=== PATIENT | female | born 1935 | race Caucasian/White ===

== ENCOUNTER 2021-10-26 14:39 | Inpatient (IN) | payer BC, MEDICARE ==
[2021-10-26 15:01] LABS: Basophils % (A) 0 %; Eosinophils # (A) 0.1 k/uL (0-0.7); Eosinophils % (A) 1 %; HCT 46.5 % (34.0-46.0); HGB 15.5 gm/dL (11.4-16.0); Lymphocytes % (A) 15 %; MCH 32.2 pg (25.0-35.0); MCHC 33.4 g/dL (31.0-37.0); MCV 96.4 fL (80.0-100.0); Mean Platelet Volume 7.4; Monocytes # (A) 0.8 k/uL (0-1.0); Monocytes % (A) 6 %; Neutrophils # (A) 10.5 k/uL (1.3-7.7); Neutrophils % (A) 78 %; Platelet Count 255 k/uL (150-450); RBC 4.82 m/uL (3.80-5.40); RDW 13.3 % (11.5-15.5); WBC 13.5 k/uL (3.8-10.6)
[2021-10-26 15:10] LABS: ALT 20 U/L (4-34); AST 33 U/L (14-36); African American GFR (CKD) >90 (>60 ml/min/1.73 sqM); Albumin 3.6 g/dL (3.5-5.0); Alkaline Phosphatase 92 U/L (38-126); Anion Gap 12 mmol/L; Blood Urea Nitrogen 16 mg/dL (7-17); Calcium 8.9 mg/dL (8.4-10.2); Carbon Dioxide 21 mmol/L (22-30); Chloride 100 mmol/L (98-107); Glucose 114 mg/dL (74-99); Lipase 40 U/L (23-300); Magnesium 1.8 mg/dL (1.6-2.3); Non-African American GFR(CKD) 85 (>60 ml/min/1.73 sqM); Potassium 3.6 mmol/L (3.5-5.1); Sodium 133 mmol/L (137-145); Total Bilirubin 0.9 mg/dL (0.2-1.3); Total Protein 6.1 g/dL (6.3-8.2)
--- NOTE | 2021-10-26 15:14 | ED ---
General Adult HPI - General Chief complaint: Chest Pain Stated complaint: Chest Pain Time Seen by Provider: 10/26/21 14:45 Source: patient, EMS, RN notes reviewed, old records reviewed Mode of arrival: EMS Limitations: no limitations - History of Present Illness Initial comments: 85-year-old female presented for evaluation of chest pain and tightness. Her symptoms began prior to arrival today. They are resolved currently. She was given aspirin by paramedics during transport. She has no previous history of coronary artery disease. She did not report dyspnea but was mildly hypoxic. She had no preceding symptoms, no cough or dyspnea, no fever. No abdominal pain. She does report bilateral lower extremity swelling over the past several days. - Related Data Home Medications Medication Instructions Recorded Confirmed ALPRAZolam [Xanax] 0.5 mg PO BID PRN 06/18/15 07/10/15 Aspirin [Adult Low Dose Aspirin EC] 81 mg PO DAILY 06/18/15 07/10/15 Biotin 10,000 mcg PO DAILY 06/18/15 07/10/15 Calcium Carbonate/Vitamin D3 1 each PO BID 06/18/15 07/10/15 [Calcium 600-Vit D3 400 Tablet] Cetirizine HCl [Zyrtec] 5 mg PO DAILY 06/18/15 07/10/15 Cholecalciferol [Vitamin D3 (25 2,000 unit PO Q48H 06/18/15 07/10/15 Mcg = 1000 Iu)] Cranberry Fruit Extract [Cranberry] 500 mg PO DAILY 06/18/15 07/10/15 Fish Oil/Dha/Epa [Fish Oil 1,200 2 each PO DAILY 06/18/15 07/10/15 mg Fish Oil] Multivitamins, Thera [Multivitamin 1 tab PO DAILY 06/18/15 07/10/15 (formulary)] Ubidecarenone [Co Q-10] 100 mg PO BID 07/07/15 07/10/15 Previous Rx's Medication Instructions Recorded Aspirin 325 mg PO DAILY #90 tab 07/11/15 Atorvastatin [Lipitor] 80 mg PO HS #90 tab 07/11/15 Clopidogrel [Plavix] 75 mg PO DAILY #90 tab 07/11/15 Allergies Allergy/AdvReac Type Severity Reaction Status Date / Time Sulfa (Sulfonamide Allergy Rash/Hives Verified 10/26/21 14:49 Antibiotics) Review of Systems ROS Statement: Those systems with pertinent positive or pertinent negative responses have been documented in the HPI. ROS Other: All systems not noted in ROS Statement are negative. Past Medical History Past Medical History: Vascular Disorder Additional Past Medical History / Comment(s): frequent UTI's, blood in urine History of Any Multi-Drug Resistant Organisms: None Reported Past Surgical History: Hysterectomy, Tonsillectomy Additional Past Surgical History / Comment(s): R hand in 2013, aortogram Past Anesthesia/Blood Transfusion Reactions: No Reported Reaction Past Psychological History: Anxiety Smoking Status: Former smoker Past Alcohol Use History: Occasional Past Drug Use History: None Reported - Past Family History Mother Family Medical History: No Reported History Additional Family Medical History / Comment(s): lived to be 95, took lasix and digoxin Father Family Medical History: Myocardial Infarction ([place]) Additional Family Medical History / Comment(s): at age 75-mi General Exam Limitations: no limitations General appearance: alert, in no apparent distress Head exam: Present: atraumatic, normocephalic Eye exam: Present: normal appearance, PERRL ENT exam: Present: normal exam Neck exam: Present: normal inspection. Absent: tenderness, meningismus Respiratory exam: Present: rales. Absent: respiratory distress Cardiovascular Exam: Present: regular rate, normal rhythm GI/Abdominal exam: Present: soft. Absent: distended, tenderness, guarding Extremities exam: Present: pedal edema. Absent: calf tenderness Neurological exam: Present: alert, oriented X3, CN II-XII intact. Absent: motor sensory deficit Psychiatric exam: Present: normal affect, normal mood Skin exam: Present: warm, dry, intact. Absent: cyanosis, diaphoretic Course Vital Signs 10/26/21 10/26/21 10/26/21 14:41 14:50 15:25 Temperature 98.1 F Pulse Rate 98 98 Pulse Rate [ 98 Videotape Operator ] Respiratory 18 18 Rate Blood Pressure 147/81 154/93 O2 Sat by Pulse 90 L 96 Oximetry EKG Findings - EKG Comments: EKG Findings:: EKG: Sinus rhythm PVC rate of 94 low voltage, VT interval 167, QRS duration 90, QTC [address] segment elevation. Medical Decision Making - Medical Decision Making 85-year-old female presenting for chest pain and dyspnea. Patient has no prior history of CAD. EKG is sinus without ST segment elevation. Patient has chest x-ray which is negative for focal pneumonia or pneumothorax. Patient has a mild leukocytosis at 13. She has a normal CMP, negative d-dimer, negative initial troponin. She will be kept in observation for serial cardiac enzymes, telemetry, echo, cardiology consultation. Case discussed with Dr. Fernandez - Lab Data Result diagrams: 10/26/21 14:54 10/26/21 14:54 Lab Results 10/26/21 10/26/21 10/26/21 Range/Units 14:54 14:54 14:54 WBC 13.5 H (3.8-10.6) k/uL RBC 4.82 (3.80-5.40) m/uL Hgb 15.5 (11.4-16.0) gm/dL Hct 46.5 H (34.0-46.0) % MCV 96.4 (80.0-100.0) fL MCH 32.2 (25.0-35.0) pg MCHC 33.4 (31.0-37.0) g/dL RDW 13.3 (11.5-15.5) % Plt Count 255 (150-450) k/uL MPV 7.4 Neutrophils % 78 % Lymphocytes % 15 % Monocytes % 6 % Eosinophils % 1 % Basophils % 0 % Neutrophils # 10.5 H (1.3-7.7) k/uL Lymphocytes # 2.0 (1.0-4.8) k/uL Monocytes # 0.8 (0-1.0) k/uL Eosinophils # 0.1 (0-0.7) k/uL Basophils # 0.0 (0-0.2) k/uL PT 10.3 (9.0-12.0) sec INR 0.9 (<1.2) APTT 25.9 (22.0-30.0) sec D-Dimer 0.38 (<0.60) mg/L FEU Sodium 133 L (137-145) mmol/L Potassium 3.6 (3.5-5.1) mmol/L Chloride 100 (98-107) mmol/L Carbon Dioxide 21 L (22-30) mmol/L Anion Gap 12 mmol/L BUN 16 (7-17) mg/dL Creatinine 0.59 (0.52-1.04) mg/dL Est GFR (CKD-EPI)AfAm >90 (>60 ml/min/1.73 sqM) Est GFR (CKD-EPI)NonAf 85 (>60 ml/min/1.73 sqM) Glucose 114 H (74-99) mg/dL Calcium 8.9 (8.4-10.2) mg/dL Magnesium 1.8 (1.6-2.3) mg/dL Total Bilirubin 0.9 (0.2-1.3) mg/dL AST 33 (14-36) U/L ALT 20 (4-34) U/L Alkaline Phosphatase 92 (38-126) U/L Troponin I (0.000-0.034) ng/mL NT-Pro-B Natriuret Pep pg/mL Total Protein 6.1 L (6.3-8.2) g/dL Albumin 3.6 (3.5-5.0) g/dL Lipase 40 (23-300) U/L 10/26/21 10/26/21 Range/Units 14:54 14:54 WBC (3.8-10.6) k/uL RBC (3.80-5.40) m/uL Hgb (11.4-16.0) gm/dL Hct (34.0-46.0) % MCV (80.0-100.0) fL MCH (25.0-35.0) pg MCHC (31.0-37.0) g/dL RDW (11.5-15.5) % Plt Count (150-450) k/uL MPV Neutrophils % % Lymphocytes % % Monocytes % % Eosinophils % % Basophils % % Neutrophils # (1.3-7.7) k/uL Lymphocytes # (1.0-4.8) k/uL Monocytes # (0-1.0) k/uL Eosinophils # (0-0.7) k/uL Basophils # (0-0.2) k/uL PT (9.0-12.0) sec INR (<1.2) APTT (22.0-30.0) sec D-Dimer (<0.60) mg/L FEU Sodium (137-145) mmol/L Potassium (3.5-5.1) mmol/L Chloride (98-107) mmol/L Carbon Dioxide (22-30) mmol/L Anion Gap mmol/L BUN (7-17) mg/dL Creatinine (0.52-1.04) mg/dL Est GFR (CKD-EPI)AfAm (>60 ml/min/1.73 sqM) Est GFR (CKD-EPI)NonAf (>60 ml/min/1.73 sqM) Glucose (74-99) mg/dL Calcium (8.4-10.2) mg/dL Magnesium (1.6-2.3) mg/dL Total Bilirubin (0.2-1.3) mg/dL AST (14-36) U/L ALT (4-34) U/L Alkaline Phosphatase (38-126) U/L Troponin I <0.012 (0.000-0.034) ng/mL NT-Pro-B Natriuret Pep 195 pg/mL Total Protein (6.3-8.2) g/dL Albumin (3.5-5.0) g/dL Lipase (23-300) U/L Disposition Clinical Impression: Chest pain Disposition: ADMITTED IP TO THIS [facility] Condition: Stable Instructions (If sedation given, give patient instructions): Chest Pain (ED) Is patient prescribed a controlled substance at d/c from ED?: No Referrals: Kathi Gar MD [Primary Care Provider] - 1-2 days Time of Disposition: 15:52
[2021-10-26 15:15] LABS: INR 0.9 (<1.2); Partial Thromboplastin Time 25.9 sec (22.0-30.0); Prothrombin Time 10.3 sec (9.0-12.0)
--- NOTE | 2021-10-26 15:27 | XR ---
EXAMINATION TYPE: XR chest 2V DATE OF EXAM: 10/26/2021 3:17 PM COMPARISON: Chest radiographs from 01/18/2016 TECHNIQUE: XR chest 2V Frontal and lateral views of the chest. CLINICAL INDICATION:Female, 85 years old with history of Chest Pain; FINDINGS: Lungs/Pleura: Bibasilar atelectasis. There is no evidence of pleural effusion, focal consolidation, o r pneumothorax. Pulmonary vascularity: Unremarkable. Heart/mediastinum: Cardiomediastinal silhouette is unremarkable. The aorta appears tortuous, a findi ng usually associated with either atherosclerosis or systemic hypertension. Musculoskeletal: Degenerative changes of the shoulder joints. IMPRESSION: Bibasilar atelectasis with low lung volumes. No definitive evidence for acute process.
[2021-10-26] MEDS ORDERED: ACETAMINOPHEN TAB 325 MG TAB PO PRN (15:48)
[2021-10-26] MEDS ORDERED: NALOXONE 0.4 MG/ML 1 ML VIAL IV PRN (15:48)
[2021-10-26] MEDS: METOPROLOL TARTRATE 25 MG TAB PO SCH (16:44)
--- NOTE | 2021-10-26 17:36 | P.HPIM ---
History of Present Illness H&P Date: 10/26/21 Chief Complaint: Chest pressure 85-year-old woman with medical history of hypertension, hyperlipidemia, nonsmoker, osteoporosis presented for chest pressure. Patient says that she was in her usual state of health up until today, shortly after completing her work out at the [facility], she experienced a bout of chest pressure that felt squeezing in nature. She has never expenses before. It was not associated with exercise, position, oral intake. She denies fevers, chills, nausea, vomiting, sick, presyncope, palpitations, sweats, cough, dyspnea, abdominal pain, constipation, diarrhea, dysuria, dyschezia, numbness/weakness of extremities. In the emergency room, patient was afebrile, 147/81, heart rate 98, 90% saturation on room air. CBC shows mild leukocytosis at 13.5, otherwise unremarkable. Chemistries show a sodium of 133, CO2 of 21, otherwise unremarkable. LFTs, lipase are unremarkable. Initial troponin was less than 0.012. BNP was 195. Coags, d-dimer are unremarkable. Chest x-ray shows bibasilar atelectasis with low lung volumes and no definite evidence of acute process. 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 All Systems reviewed and pertinent positives and negatives noted in HPI, all other symptoms are negative Gen: in no apparent distress, resting comfortably in bed Eyes: PERRL, no scleral injection or icterus HENT: normocephalic, atraumatic, good hearing acuity, moist mucous membranes Neck: no tracheal deviation, full range of motion Resp: good air exchange, breathing comfortably with no accessory muscle use, no tactile fremitus, clear to auscultation bilaterally CVS: good distal perfusion x 4, ankle pitting edema, regular rate and rhythm, no murmurs, JVD is present GI: soft, NTTP, ND, no hepatosplenomegaly : no suprapubic tenderness, no CVAT, lang catheter not present MSK: no clubbing, no cyanosis, no noted contractures of extremities Skin: no noted rashes, petechiae; temperature of skin is appropriate Neuro: moving all extremities without signs of weakness, CN II-XII intact Psych: cooperative, euthymic mood, insight and judgment intact Labs and imaging reviewed as above Assessment/plan: Chest pain, atypical -Admit to observation, telemetry -Cardiology consult -Trend troponins -Echocardiogram -Lipid panel, A1c, TSH -Aspirin, statin -Resume home metoprolol Leukocytosis Hyponatremia -IV fluids Hypertension Hyperlipidemia Osteoporosis -Home medications reviewed and reconciled Patient is full code DVT prophylaxis with early ambulation Past Medical History Past Medical History: Vascular Disorder Additional Past Medical History / Comment(s): frequent UTI's, blood in urine History of Any Multi-Drug Resistant Organisms: None Reported Past Surgical History: Hysterectomy, Tonsillectomy Additional Past Surgical History / Comment(s): R hand in 2013, aortogram Past Anesthesia/Blood Transfusion Reactions: No Reported Reaction Past Psychological History: Anxiety Smoking Status: Former smoker Past Alcohol Use History: Occasional Past Drug Use History: None Reported - Past Family History Mother Family Medical History: No Reported History Additional Family Medical History / Comment(s): lived to be 95, took lasix and digoxin Father Family Medical History: Myocardial Infarction ([place]) Additional Family Medical History / Comment(s): at age 75-mi Medications and Allergies Home Medications Medication Instructions Recorded Confirmed Type ALPRAZolam [Xanax] 0.5 mg PO HS PRN 06/18/15 10/26/21 History Cranberry Fruit Extract [Cranberry] 500 mg PO DAILY 06/18/15 10/26/21 History Fish Oil/Dha/Epa [Fish Oil 1,200 1 cap PO DAILY 06/18/15 10/26/21 History mg Fish Oil] Multivitamins, Thera [Multivitamin 1 tab PO DAILY 06/18/15 10/26/21 History (formulary)] Atorvastatin [Lipitor] 80 mg PO HS #90 tab 07/11/15 10/26/21 Rx Alendronate Sodium [Fosamax] 70 mg PO THOMPSON 10/26/21 10/26/21 History Calcium Carbonate [Calcium] 600 mg PO BID 10/26/21 10/26/21 History Cholecalciferol [Vitamin D3 (25 50 mcg PO DAILY 10/26/21 10/26/21 History Mcg = 1000 Iu)] Fexofenadine HCl [Afshan Allergy] 180 mg PO DAILY 10/26/21 10/26/21 History Metoprolol Tartrate [Lopressor] 25 mg PO DAILY 10/26/21 10/26/21 History Allergies Allergy/AdvReac Type Severity Reaction Status Date / Time Sulfa (Sulfonamide Allergy Rash/Hives Verified 10/26/21 16:11 Antibiotics) Physical Exam Osteopathic Statement: *. No significant issues noted on an osteopathic structural exam other than those noted in the History and Physical/Consult. Vitals: Vital Signs Temp Pulse Pulse Resp BP Pulse Ox 10/26/21 16:34 93 18 167/90 94 L 10/26/21 15:25 98 18 154/93 96 10/26/21 14:50 98 10/26/21 14:41 98.1 F 98 18 147/81 90 L Intake and Output 10/26/21 10/26/21 10/26/21 06:59 14:59 22:59 Other: Weight 68.039 kg Results CBC & Chem 7: 10/26/21 14:54 10/26/21 14:54 Labs: Abnormal Lab Results - Last 24 Hours (Table) 10/26/21 10/26/21 Range/Units 14:54 14:54 WBC 13.5 H (3.8-10.6) k/uL Hct 46.5 H (34.0-46.0) % Neutrophils # 10.5 H (1.3-7.7) k/uL Sodium 133 L (137-145) mmol/L Carbon Dioxide 21 L (22-30) mmol/L Glucose 114 H (74-99) mg/dL Total Protein 6.1 L (6.3-8.2) g/dL
[2021-10-26] MEDS ORDERED: ALPRAZolam 0.5 MG TAB PO PRN (17:37)
[2021-10-26] MEDS ORDERED: ASPIRIN 325 MG TAB PO STA (17:38)
[2021-10-26] MEDS ORDERED: NALOXONE 0.4 MG/ML 1 ML VIAL IVP PRN (17:38)
[2021-10-26] MEDS: SODIUM CHLORIDE 0.9% 1,000 ML IV SCH (19:21)
[2021-10-26] MEDS: CALCIUM CARBONATE 500 MG CHEWABLE PO SCH (21:03)
[2021-10-26] MEDS: ATORVASTATIN 80 MG TAB PO SCH (21:03)
[2021-10-27 07:25] LABS: Basophils # (A) 0.1 k/uL (0-0.2); Basophils % (A) 0 %; Eosinophils # (A) 0.1 k/uL (0-0.7); Eosinophils % (A) 0 %; HCT 48.3 % (34.0-46.0); HGB 15.7 gm/dL (11.4-16.0); Lymphocytes % (A) 15 %; MCH 30.8 pg (25.0-35.0); MCHC 32.5 g/dL (31.0-37.0); MCV 94.9 fL (80.0-100.0); Mean Platelet Volume 7.2; Monocytes # (A) 0.8 k/uL (0-1.0); Monocytes % (A) 6 %; Neutrophils # (A) 9.9 k/uL (1.3-7.7); Neutrophils % (A) 77 %; Platelet Count 284 k/uL (150-450); RBC 5.09 m/uL (3.80-5.40); RDW 12.9 % (11.5-15.5); WBC 12.9 k/uL (3.8-10.6)
[2021-10-27 07:46] LABS: African American GFR (CKD) >90 (>60 ml/min/1.73 sqM); Anion Gap 10 mmol/L; Blood Urea Nitrogen 11 mg/dL (7-17); Calcium 8.7 mg/dL (8.4-10.2); Carbon Dioxide 22 mmol/L (22-30); Chloride 104 mmol/L (98-107); Glucose 117 mg/dL (74-99); Magnesium 1.9 mg/dL (1.6-2.3); Non-African American GFR(CKD) 89 (>60 ml/min/1.73 sqM); Sodium 136 mmol/L (137-145)
[2021-10-27] MEDS ORDERED: REGADENOSON 0.4 MG/5 ML SYRINGE IV PRN (08:11)
[2021-10-27] MEDS ORDERED: CAFFEINE CITRATE 60 MG/3 ML VIAL IV PRN (08:11)
[2021-10-27] MEDS ORDERED: AMINOPHYLLINE 500 MG/20 ML VIAL IV PRN (08:11)
[2021-10-27] MEDS ORDERED: MAG HYDROX/AL HYDROX/SIMETH 30 ML, HYOSCYAMINE ELIXIR 10 ML, LIDOCAINE VISCOUS 2% 10 ML PO ONE ×3 (08:11)
[2021-10-27] MEDS ORDERED: NON FORMULARY DRUG (Fish Oil/Dha/Epa [Fish Oil 1,200 Mg Fish Oil] 1 EACH Capsule) PO SCH (09:00)
[2021-10-27] MEDS ORDERED: ASPIRIN 81 MG PO SCH (09:00)
[2021-10-27] MEDS ORDERED: NON FORMULARY DRUG (Cranberry Fruit Extract [Cranberry] 500 MG Tablet) PO SCH (09:00)
[2021-10-27] MEDS: SODIUM CHLORIDE 0.9% 1,000 ML IV SCH (09:33)
--- NOTE | 2021-10-27 09:43 | P.CRDCN ---
History of Present Illness History of present illness: HISTORY OF PRESENT ILLNESS: This is a 85-year-old female with a past medical history significant for hypertension and hyperlipidemia. Patient does not follow with a citizenship teacher. She states that she is to follow with Dr. Palencia but has not seen him recently. We have been asked to see the patient in consultation for chest pain. Patient examined at the bedside. Patient states yesterday she went to the [facility] and was doing some exercise walking up and down the stairs. She states that she was feeling fine with no symptoms. She states later in the day at home she developed chest pressure. She also reports that she developed a headache and states that her teeth ached. Patient reports having a mild headache this morning. She states that she continues to have some mild chest discomfort this morning. She states the pain is worse when she takes a deep breath in. She denied feeling any shortness of breath. She did report feeling diaphoretic yesterday. She also reports having some lower extremity edema for the past couple weeks which she states is new. * EKG reveals sinus mechanism with no signs of acute ischemia * Chest xray bibasilar atelectasis with low lung volumes. * Laboratory data: WBC 12.9. Hemoglobin 15.7. Platelet count 284. Sodium 136. Potassium 4.0. BUN 11. Creatinine 0.51. Troponin negative 3. * Current home cardiac medications include metoprolol tartrate 25 mg daily, Lipitor 80 mg at night * Patient underwent stress echo 2014 which was negative for ischemia REVIEW OF SYSTEMS: At the time of my exam: CONSTITUTIONAL: Denies fever or chills. HEENT: Denies blurred vision, vision changes, or eye pain. Denies hemoptysis CARDIOVASCULAR: Denies chest pain. Denies orthopnea. Denies PND. Denies pa lpitations RESPIRATORY: Denies shortness of breath. GASTROINTESTINAL: Denies abdominal pain. Denies nausea or vomiting. HEMATOLOGIC: Denies bleeding disorders. GENITOURINARY: Denies any blood in urine. SKIN: Denies pruitis. Denies rash. PHYSICAL EXAM: VITAL SIGNS: Reviewed. GENERAL: Well-developed in no acute distress. HEENT: Head is normocephalic. Pupils are equal, round. Sclerae anicteric. Mucous membranes of the mouth are moist. Neck supple. No JVD or thyromegaly LUNGS: Respirations even and unlabored. Lungs essentially clear to auscultation bilaterally. HEART: Regular rate and rhythm. S1 and S2 heard. ABDOMEN: Soft. Nondistended. Nontender. EXTREMITIES: Normal range of motion. No clubbing or cyanosis. Peripheral pulses intact. No lower extremity edema NEUROLOGIC: Awake and alert. Oriented x 3. ASSESSMENT: Chest pain, atypical, troponin negative 3 Hypertension Hyperlipidemia Peripheral arterial disease, status post balloon angioplasty of right popliteal, 2016 PLAN: An acute coronary event has been ruled out Resume home cardiac medications Obtain 2-D echo to assess cardiac structure and function Patient to undergo Lexiscan stress test today. If negative, she may be discharged home from a cardiac perspective Nurse practitioner note has been reviewed by physician. Signing provider agrees with the documented findings, assessment, and plan of care. Past Medical History Past Medical History: Vascular Disorder Additional Past Medical History / Comment(s): frequent UTI's, blood in urine History of Any Multi-Drug Resistant Organisms: None Reported Past Surgical History: Hysterectomy, Tonsillectomy Additional Past Surgical History / Comment(s): R hand in 2013, aortogram Past Anesthesia/Blood Transfusion Reactions: No Reported Reaction Past Psychological History: Anxiety Smoking Status: Former smoker Past Alcohol Use History: Occasional Past Drug Use History: None Reported - Past Family History Mother Family Medical History: No Reported History Additional Family Medical History / Comment(s): lived to be 95, took lasix and digoxin Father Family Medical History: Myocardial Infarction ([place]) Additional Family Medical History / Comment(s): at age 75-mi Medications and Allergies Home Medications Medication Instructions Recorded Confirmed Type ALPRAZolam [Xanax] 0.5 mg PO HS PRN 06/18/15 10/26/21 History Cranberry Fruit Extract [Cranberry] 500 mg PO DAILY 06/18/15 10/26/21 History Fish Oil/Dha/Epa [Fish Oil 1,200 1 cap PO DAILY 06/18/15 10/26/21 History mg Fish Oil] Multivitamins, Thera [Multivitamin 1 tab PO DAILY 06/18/15 10/26/21 History (formulary)] Atorvastatin [Lipitor] 80 mg PO HS #90 tab 07/11/15 10/26/21 Rx Alendronate Sodium [Fosamax] 70 mg PO THOMPSON 10/26/21 10/26/21 History Calcium Carbonate [Calcium] 600 mg PO BID 10/26/21 10/26/21 History Cholecalciferol [Vitamin D3 (25 50 mcg PO DAILY 10/26/21 10/26/21 History Mcg = 1000 Iu)] Fexofenadine HCl [Afshan Allergy] 180 mg PO DAILY 10/26/21 10/26/21 History Metoprolol Tartrate [Lopressor] 25 mg PO DAILY 10/26/21 10/26/21 History Allergies Allergy/AdvReac Type Severity Reaction Status Date / Time Sulfa (Sulfonamide Allergy Rash/Hives Verified 10/26/21 16:11 Antibiotics) Physical Exam Vitals: Vital Signs Temp Pulse Pulse Resp BP Pulse Ox 10/27/21 01:20 80 18 93 L 10/26/21 23:08 72 18 132/57 93 L 10/26/21 21:15 81 93 L 10/26/21 19:18 71 18 116/76 94 L 10/26/21 16:34 93 18 167/90 94 L 10/26/21 15:25 98 18 154/93 96 10/26/21 14:50 98 10/26/21 14:41 98.1 F 98 18 147/81 90 L Results 10/27/21 07:11 10/27/21 07:11 Cardiac Enzymes 10/26/21 10/26/21 10/26/21 Range/Units 14:54 14:54 18:58 AST 33 (14-36) U/L Troponin I <0.012 0.014 (0.000-0.034) ng/mL 10/26/21 Range/Units 21:12 AST (14-36) U/L Troponin I 0.017 (0.000-0.034) ng/mL Coagulation 10/26/21 Range/Units 14:54 PT 10.3 (9.0-12.0) sec APTT 25.9 (22.0-30.0) sec CBC 10/26/21 10/27/21 Range/Units 14:54 07:11 WBC 13.5 H 12.9 H (3.8-10.6) k/uL RBC 4.82 5.09 (3.80-5.40) m/uL Hgb 15.5 15.7 (11.4-16.0) gm/dL Hct 46.5 H 48.3 H (34.0-46.0) % Plt Count 255 284 (150-450) k/uL Comprehensive Metabolic Panel 10/26/21 10/27/21 Range/Units 14:54 07:11 Sodium 133 L 136 L (137-145) mmol/L Potassium 3.6 4.0 (3.5-5.1) mmol/L Chloride 100 104 (98-107) mmol/L Carbon Dioxide 21 L 22 (22-30) mmol/L BUN 16 11 (7-17) mg/dL Creatinine 0.59 0.51 L (0.52-1.04) mg/dL Glucose 114 H 117 H (74-99) mg/dL Calcium 8.9 8.7 (8.4-10.2) mg/dL AST 33 (14-36) U/L ALT 20 (4-34) U/L Alkaline Phosphatase 92 (38-126) U/L Total Protein 6.1 L (6.3-8.2) g/dL Albumin 3.6 (3.5-5.0) g/dL Current Medications Generic Name Dose Route Start Last Admin Trade Name Freq PRN Reason Stop Dose Admin Acetaminophen 650 mg 10/26/21 15:48 10/26/21 16:44 Acetaminophen Tab 325 Mg Tab PO 650 mg Q6HR PRN Administration Mild Pain or Fever > 100.5 Alprazolam 0.5 mg 10/26/21 17:37 Alprazolam 0.5 Mg Tab PO HS PRN Insomnia Aspirin 81 mg 10/27/21 09:00 Aspirin 81 Mg PO DAILY [facility] Atorvastatin Calcium 80 mg 10/26/21 21:00 10/26/21 21:03 Atorvastatin 80 Mg Tab PO 80 mg HS [place] Administration Calcium Carbonate/Glycine 500 mg 10/26/21 21:00 10/26/21 21:03 Calcium Carbonate 500 Mg Chewable PO 500 mg BID [place] Administration Cholecalciferol 50 mcg 10/27/21 09:00 Cholecalciferol 25 Mcg (1000 Iu) Tablet PO DAILY [facility] Sodium Chloride 1,000 mls @ 75 mls/hr 10/26/21 17:45 10/26/21 19:21 Saline 0.9% IV 75 mls/hr .[id number] [place] Administration Loratadine 10 mg 10/27/21 09:00 Loratadine 10 Mg Tab PO DAILY [facility] Metoprolol Tartrate 25 mg 10/26/21 17:00 10/26/21 16:44 Metoprolol Tartrate 25 Mg Tab PO 25 mg DAILY [place] Administration Multivitamins 1 each 10/27/21 09:00 Multivitamins, Thera 1 Each Tab PO DAILY [place] Naloxone HCl 0.2 mg 10/26/21 15:48 Naloxone 0.4 Mg/Ml 1 Ml Vial IV Q2M PRN Opioid Reversal Naloxone HCl 0.2 mg 10/26/21 17:38 Naloxone 0.4 Mg/Ml 1 Ml Vial IVP Q2M PRN Opioid Reversal Patient's Own ( 70 mg 11/01/21 07:00 Alendronate Sodium [ PO Fosamax] 70 Mg THOMPSON [place] Tablet) 10/27/21 07:11 10/27/21 07:11
[2021-10-27] MEDS: CHOLECALCIFEROL 25 MCG (1000 IU) TABLET PO SCH (11:16)
[2021-10-27] MEDS: LORATADINE 10 MG TAB PO SCH (11:16)
[2021-10-27] MEDS: CALCIUM CARBONATE 500 MG CHEWABLE PO SCH ×2 (11:16→20:31)
[2021-10-27] MEDS: METOPROLOL TARTRATE 25 MG TAB PO SCH (11:17)
[2021-10-27] MEDS: MULTIVITAMINS, THERA 1 EACH TAB PO SCH (11:17)
--- NOTE | 2021-10-27 11:26 | NM ---
EXAMINATION TYPE: NM stress lexiscan cardiolite DATE OF EXAM: 10/27/2021 COMPARISON: NONE HISTORY: chest pain TECHNIQUE: After the intravenous administration of 10.2 mCi Tc 99m Sestamibi - Cardiolite resting SP ECT images acquired 45 minutes post injection. The patient received 0.4mg Lexiscan, 25.8 mCi Tc 99m Sestamibi - Stress images obtained [address] injection FINDINGS: Review of stress and rest SPECT images demonstrates no distinct perfusion abnormality. Gated analysi s shows normal wall motion with an estimated left ventricular ejection fraction of 89 %. IMPRESSION: No scintigraphic evidence for reversible ischemia.
[2021-10-27] MEDS ORDERED: METOPROLOL TARTRATE 25 MG TAB PO STA (12:09)
[2021-10-27] MEDS: APIXABAN 5 MG TAB PO SCH ×2 (12:24→20:31)
[2021-10-27] MEDS ORDERED: AMIODARONE 200 MG TAB PO SCH (12:30)
--- NOTE | 2021-10-27 13:06 | CA ---
Transthoracic Echo Report Name: Laura Ruth Age: 85 Gender: F : 1935 Exam Date: 10/27/2021 10:40 Exam Location: [facility] Ht (in): 59 Wt (lb): 150 Ordering Physician: Kt Honeycutt MD Attending/Referring Phys: Yonis Stallings PAC Pattern Data Operator Anne Marie Edwards RDCS Procedure CPT: Indications: CP/RADHA Cardiac Hx: Technical Quality: Fair Contrast 1: Total Dose (mL): Contrast 2: Total Dose (mL): MEASUREMENTS (Male / Female) Normal Values 2D ECHO LV Diastolic Diameter PLAX 3.6 cm 4.2 - 5.9 / 3.9 - 5.3 cm LV Systolic Diameter PLAX 2.0 cm IVS Diastolic Thickness 1.1 cm 0.6 - 1.0 / 0.6 - 0.9 cm LVPW Diastolic Thickness 1.0 cm 0.6 - 1.0 / 0.6 - 0.9 cm LV Relative Wall Thickness 0.6 LA Volume 39.4 cm??? 18 - 58 / 22 - 52 cm??? M-MODE Aortic Root Diameter MM 3.0 cm LA Systolic Diameter MM 2.7 cm LA Ao Ratio MM 0.9 AV Cusp Separation MM 1.5 cm DOPPLER AV Peak Velocity 150.5 cm/s AV Peak Gradient 9.1 mmHg LVOT Peak Velocity 108.0 cm/s LVOT Peak Gradient 4.7 mmHg MV Area PHT 3.7 cm??? Mitral E Point Velocity 75.2 cm/s Mitral A Point Velocity 93.6 cm/s Mitral E to A Ratio 0.8 MV Deceleration Time 204.1 ms MV E' Velocity 6.6 cm/s Mitral E to MV E' Ratio 11.4 TR Peak Velocity 265.3 cm/s TR Peak Gradient 28.2 mmHg Right Ventricular Systolic Press 31.0 mmHg FINDINGS Left Ventricle Mildly increased septal wall thickness. Mildly increased posterior wall thickness. Normal left ventricular systolic function with no obvious regional wall motion abnormalities. Left ventricular ejection fraction is estimated at 55-60 %. Right Ventricle Normal right ventricular size and function. Right ventricular systolic pressure within normal limits. Right Atrium Normal right atrial size. Left Atrium Mitral Valve Structurally normal mitral valve. No mitral stenosis. Mitral valve thickened. Mild mitral annular calcification. Mild mitral regurgitation. Aortic Valve Trileaflet aortic valve. No aortic valve stenosis or regurgitation. Aortic valve sclerosis. Tricuspid Valve Structurally normal tricuspid valve. Mild tricuspid regurgitation. Pulmonic Valve Structurally normal pulmonic valve. Trace pulmonic regurgitation. Pericardium No pericardial effusion. Aorta Normal size aortic root and proximal ascending aorta. CONCLUSIONS Normal left ventricular EF 55-60% Mild LVH Mild mitral regurgitation Mild tricuspid regurgitation RVSP 31 Previewed by: Dr. Sunil Ba DO (Electronically Signed) Final Date: 27 October 2021 13:06
--- NOTE | 2021-10-27 13:14 | P.PN ---
Subjective Progress Note Date: 10/27/21 Patient was seen around 9 AM. No acute events overnight. Patient reports a dry cough. She denies any chest pain, shortness breath or palpitations. No nausea or vomiting. No fever or chills. Requesting COVID-19 test. Perfect Serve from nursing after the encounter stating that patient was found to be in AFib with RVR on telemetry. General: non toxic, no distress, appears at stated age Derm: warm, dry Head: atraumatic, normocephalic, symmetric Eyes: EOMI, no lid lag, anicteric sclera Mouth: no lip lesion, mucus membranes moist Cardiovascular: S1S2 reg, no murmur Lungs: CTA bilateral, no rhonchi, no rales , no accessory muscle use Ext: no gross muscle atrophy, no edema, no contractures Neuro: no focal neuro deficits Psych: Alert, oriented, appropriate affect Assessment/plan: Atrial fibrillation with RVR -New onset -Started on Amiodarone, Metoprolol increased -Eliquis for CVA prevention -Maintain K > 4 and Mg > 2 -Telemetry monitoring -Echocardigoram pending -Cardiology on board Chest pain, atypical -Troponins trended and ACS ruled out -Lipid panel pending -A1c, TSH wnl -Aspirin, statin -Lexican negative Leukocytosis Hyponatremia -IV fluids -Improving -No signs of active infection Hypertension Hyperlipidemia Osteoporosis -Home medications reviewed and reconciled Objective - Vital Signs Vital signs: Vital Signs Temp 98.1 F 10/27/21 09:56 Pulse 98 10/27/21 09:56 Resp 22 10/27/21 09:56 BP 133/92 10/27/21 12:05 Pulse Ox 93 L 10/27/21 09:56 FiO2 Intake & Output 10/26/21 10/27/21 10/27/21 18:59 06:59 18:59 Weight 68.039 kg - Labs CBC & Chem 7: 10/27/21 07:11 10/27/21 07:11 Labs: Abnormal Lab Results - Last 24 Hours (Table) 10/26/21 10/26/21 10/27/21 Range/Units 14:54 14:54 07:11 WBC 13.5 H 12.9 H (3.8-10.6) k/uL Hct 46.5 H 48.3 H (34.0-46.0) % Neutrophils # 10.5 H 9.9 H (1.3-7.7) k/uL Sodium 133 L (137-145) mmol/L Carbon Dioxide 21 L (22-30) mmol/L Creatinine (0.52-1.04) mg/dL Glucose 114 H (74-99) mg/dL Total Protein 6.1 L (6.3-8.2) g/dL 10/27/21 Range/Units 07:11 WBC (3.8-10.6) k/uL Hct (34.0-46.0) % Neutrophils # (1.3-7.7) k/uL Sodium 136 L (137-145) mmol/L Carbon Dioxide (22-30) mmol/L Creatinine 0.51 L (0.52-1.04) mg/dL Glucose 117 H (74-99) mg/dL Total Protein (6.3-8.2) g/dL
[2021-10-27] MEDS ORDERED: DEXTROSE 5% IN WATER 100 ML with AMIODARONE 150 MG IV ONE (13:19)
[2021-10-27] MEDS ORDERED: AMIODARONE 360 MG in DEXTROSE 5% IN WATER 200 ML IV ONE ×2 (13:20)
--- NOTE | 2021-10-27 13:23 | CA ---
Lexiscan Nuclear Stress Test Report Name: Laura Ruth Exam Date: 10/27/2021 10:17 Exam Location: [facility] Ht (in): 59 Wt (lb): 150 BSA: 1.63 Ordering Phys: Mellissa Cleary Referring Phys: Yonis Stallings PAC Technologist: Celso Gomez Age: 85 Gender: F : 1935 Procedure CPT: Indications: Reflex order-Stress test ICD-10 Codes: Patient History: Chest Pain and short of breath Medications: Meds past 24 hrs: Pretest Chest Pain: STRESS TEST Lexiscan Protocol Exercise Duration (min:sec): 01:[address] Depressions (mm): Angina Score: Paige Score: Resting HR (bpm): 83 Peak HR (bpm): 100 Resting BP (mmHg): 166 / 80 Peak BP (mmHg): 154 / 82 MPHR: 136 Target HR: 116 % MPHR: 74 METS: 1.0 Total Dose: Peak Dose: Atropine: Double Product: 92299 BP Response: Stress Termination: INFUSION COMPLETE Stress Symptoms: CHEST PRESSURE,DIFFICULTY IN BREATHING Stress Summary: ECG ANALYSIS Resting ECG: Stress ECG: CONCLUSIONS At baseline EKG showed normal sinus rhythm, normal axis, poor R- wave progression, no significant ST-T wave abnormalities. Patient recieved IV infusion of Lexiscan 0.4mg and at peak infusion EKG showed no significant change from baseline. Conclusions: 1. Normal EKG response to Lexiscan infusion 2. Nuclear imaging to be reported separately. Dr. Sunil Ba DO (Electronically Signed) Final Date: 27 October 2021 13:22
[2021-10-27 15:18] LABS: Chol/HDL Ratio 1.49 Ratio; LDL Cholesterol,Calculated 25.3 mg/dL (0.0-131.0); VLDL Calculation 10.02 mg/dL (5.00-40.00)
[2021-10-27] MEDS ORDERED: AMIODARONE 450 MG in DEXTROSE 5% IN WATER 250 ML IV SCH ×2 (19:30)
[2021-10-27] MEDS: ATORVASTATIN 80 MG TAB PO SCH (20:31)
[2021-10-27] MEDS: METOPROLOL TARTRATE 50 MG TAB PO SCH (20:31)
[2021-10-28] MEDS: SODIUM CHLORIDE 0.9% 1,000 ML IV SCH ×2 (04:22→11:42)
[2021-10-28] MEDS: CHOLECALCIFEROL 25 MCG (1000 IU) TABLET PO SCH (09:04)
[2021-10-28] MEDS: MULTIVITAMINS, THERA 1 EACH TAB PO SCH (09:04)
[2021-10-28] MEDS: APIXABAN 5 MG TAB PO SCH (09:04)
[2021-10-28] MEDS: LORATADINE 10 MG TAB PO SCH (09:04)
[2021-10-28] MEDS: CALCIUM CARBONATE 500 MG CHEWABLE PO SCH (09:04)
[2021-10-28] MEDS: METOPROLOL TARTRATE 50 MG TAB PO SCH (09:04)
[2021-10-28 09:08] VITALS: RESP 16; TEMP 97.6
[2021-10-28] MEDS ORDERED: AMIODARONE 200 MG TAB PO SCH (10:00)
[2021-10-28 11:44] VITALS: BP 136/80; PULSE 58
--- NOTE | 2021-10-28 12:10 | P.PN ---
Subjective This is a 85-year-old female with a past medical history significant for hypertension and hyperlipidemia. Patient does not follow with a jeep mechanic. She states that she is to follow with Dr. Palencia but has not seen him recently. We have been asked to see the patient in consultation for chest pain. Patient examined at the bedside. Patient states yesterday she went to the [facility] and was doing some exercise walking up and down the stairs. She states that she was feeling fine with no symptoms. She states later in the day at home she developed chest pressure. She also reports that she developed a headache and states that her teeth ached. Patient reports having a mild headache this morning. She states that she continues to have some mild chest discomfort this morning. She states the pain is worse when she takes a deep breath in. She d enied feeling any shortness of breath. She did report feeling diaphoretic yesterday. She also reports having some lower extremity edema for the past couple weeks which she states is new. She underwent Lexiscan stress test yesterday that revealed no evidence of reversible ischemia Echocardiogram revealed EF 5560 percent, mild mitral regurgitation, mild tricuspid regurgitation, mild LVH, RVSP of 31 mmHg. 10/28 Patient was transferred to 3 S unit secondary to atrial fibrillation with rapid ventricular response. Patient was found to be in A. fib with RVR. She was st arted on IV amiodarone drip. Her metoprolol was increased to 50 mg twice a day. She is also started on anticoagulation with Eliquis. Patient seen and examined at bedside, no acute distress. She converted to sinus mechanism overnight she is currently maintaining sinus mechanism with heart rates in the 50s to 60s. She denies any chest pain, shortness of breath, lightheadedness, dizziness, syncope or near-syncope overall she is feeling well PHYSICAL EXAM: VITAL SIGNS: Reviewed. GENERAL: Well-developed in no acute distress. HEENT: Neck supple. No JVD LUNGS: Respirations even and unlabored. Lungs essentially clear to auscultation bilaterally. HEART: Regular rate and rhythm. S1 and S2 heard. ABDOMEN: Soft. Nondistended. Nontender. EXTREMITIES: Normal range of motion. No clubbing or cyanosis. Peripheral pulses intact. No lower extremity edema NEUROLOGIC: Awake and alert. Oriented x 3. ASSESSMENT: Paroxysmal atrial fibrillation with RVR, currently in sinus rhythm, [id number] score 4 Chest pain, atypical, troponin negative 3 Hypertension Hyperlipidemia Peripheral arterial disease, status post balloon angioplasty of right popliteal, 2016 PLAN: Transitioned to amiodarone 400mg BID and taper as outpatient Metoprolol 50mg BID Continue Eliquis 5mg BID, case management consulted for Eliquis coverage. Patient is currently stable on current medication regimen, feeling well, maintaining sinus mechanism, euvolemic on exam. Stable for discharge today. Recommend close follow up with Dr. Hartman as an outpatient, patient with appt on 11/23. Nurse practitioner note has been reviewed by physician. Signing provider agrees with the documented findings, assessment, and plan of care. Objective - Vital Signs Vital signs: Vital Signs Temp 97.6 F 10/28/21 08:00 Pulse 58 L 10/28/21 11:42 Resp 16 10/28/21 11:42 BP 136/80 10/28/21 11:42 Pulse Ox 92 L 10/28/21 11:42 FiO2 Intake & Output 10/27/21 10/28/21 10/28/21 18:59 06:59 18:59 Intake Total 118 Balance 118 Intake: Oral 118 Other: Voiding Method Toilet Toilet Toilet # Voids 1 1 - Labs CBC & Chem 7: 10/27/21 07:11 10/27/21 07:11 Labs: Abnormal Lab Results - Last 24 Hours (Table) 10/27/21 Range/Units 07:11 HDL Cholesterol 71.70 H (40.00-60.00) mg/dL
--- NOTE | 2021-10-28 13:45 | P.DS ---
Providers Date of admission: 10/27/21 15:40 Expected date of discharge: 10/28/21 Attending physician: Nick Fernandez MD Consults: 10/26/21 15:48 Consult Physician Routine Consulting Provider: Tamera Curran Consult Reason/Comments: CP Do you want consulting provider notified?: Yes Primary care physician: Stated None Hospital Course: 85-year-old woman with medical history of hypertension, hyperlipidemia, nonsmoker, osteoporosis presented for chest pressure. Patient says that she was in her usual state of health up until today, shortly after completing her work out at the [facility], she experienced a bout of chest pressure that felt squeezing in nature. She has never expenses before. It was not associated with exercise, position, oral intake. She denies fevers, chills, nausea, vomiting, sick, presyncope, palpitations, sweats, cough, dyspnea, abdominal pain, constipation, diarrhea, dysuria, dyschezia, numbness/weakness of extremities. In the emergency room, patient was afebrile, 147/81, heart rate 98, 90% saturation on room air. CBC shows mild leukocytosis at 13.5, otherwise unremarkable. Chemistries show a sodium of 133, CO2 of 21, otherwise unremarkable. LFTs, lipase are unremarkable. Initial troponin was less than 0.012. BNP was 195. Coags, d-dimer are unremarkable. Chest x-ray shows bibasilar atelectasis with low lung volumes and no definite evidence of acute process. 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 Troponins were trended and ACS was ruled out. Procardia was done which showed EF of 55-60% with mild LVH, mild mitral regurgitation, mild tricuspid regurgitation. Cardiology was consulted and recommended stress test. Stress test was negative. Patient was noted to be in A. fib with RVR after stress test. She was started on amiodarone drip. She converted to sinus rhythm. Cardiology increased the patient's Toprol and added amiodarone by mouth. Elquis was started for anticoagulation. She was back to sinus rhythm with a heart rate in the 60s when she was evaluated on 10/28/2021. Cardiology cleared the patient for discharge. General: non toxic, no distress, appears at stated age Derm: warm, dry Head: atraumatic, normocephalic, symmetric Eyes: EOMI, no lid lag, anicteric sclera Mouth: no lip lesion, mucus membranes moist Cardiovascular: S1S2 reg, no murmur Lungs: CTA bilateral, no rhonchi, no rales , no accessory muscle use Ext: no gross muscle atrophy, no edema, no contractures Neuro: no focal neuro deficits Psych: Alert, oriented, appropriate affect Discharge diagnosis: Atrial fibrillation with RVR Chest pain, ACS ruled out Leukocytosis Hyponatremia Hypertension Dyslipidemia Osteoporosis This complex discharge took about 37 minutes to complete. Pertinent Studies: Chest x-ray Echocardiogram Lexiscan Patient Condition at Discharge: Stable Plan - Discharge Summary New Discharge Prescriptions: New Aspirin 81 mg PO DAILY #30 tab Apixaban [Eliquis] 5 mg PO BID #60 tab Amiodarone [Cordarone] 400 mg PO BID #120 tab Metoprolol Tartrate [Lopressor] 50 mg PO BID 2 Days #60 tab Continue Multivitamins, Thera [Multivitamin (formulary)] 1 tab PO DAILY ALPRAZolam [Xanax] 0.5 mg PO HS PRN PRN Reason: Insomnia Fish Oil/Dha/Epa [Fish Oil 1,200 mg Fish Oil] 1 cap PO DAILY Cranberry Fruit Extract [Cranberry] 500 mg PO DAILY Atorvastatin [Lipitor] 80 mg PO HS #90 tab Fexofenadine HCl [Afshan Allergy] 180 mg PO DAILY Cholecalciferol [Vitamin D3 (25 Mcg = 1000 Iu)] 50 mcg PO DAILY Calcium Carbonate [Calcium] 600 mg PO BID Alendronate Sodium [Fosamax] 70 mg PO THOMPSON Discontinued Metoprolol Tartrate [Lopressor] 25 mg PO DAILY Discharge Medication List ALPRAZolam [Xanax] 0.5 mg PO HS PRN 06/18/15 [History] Cranberry Fruit Extract [Cranberry] 500 mg PO DAILY 06/18/15 [History] Fish Oil/Dha/Epa [Fish Oil 1,200 mg Fish Oil] 1 cap PO DAILY 06/18/15 [History] Multivitamins, Thera [Multivitamin (formulary)] 1 tab PO DAILY 06/18/15 [History] Atorvastatin [Lipitor] 80 mg PO HS #90 tab 07/11/15 [Rx] Alendronate Sodium [Fosamax] 70 mg PO THOMPSON 10/26/21 [History] Calcium Carbonate [Calcium] 600 mg PO BID 10/26/21 [History] Cholecalciferol [Vitamin D3 (25 Mcg = 1000 Iu)] 50 mcg PO DAILY 10/26/21 [History] Fexofenadine HCl [Afshan Allergy] 180 mg PO DAILY 10/26/21 [History] Apixaban [Eliquis] 5 mg PO BID #60 tab 10/27/21 [Rx] Aspirin 81 mg PO DAILY #30 tab 10/27/21 [Rx] Amiodarone [Cordarone] 400 mg PO BID #120 tab 10/28/21 [Rx] Metoprolol Tartrate [Lopressor] 50 mg PO BID 2 Days #60 tab 10/28/21 [Rx] Follow up Appointment(s)/Referral(s): Mandeep Hartman MD [STAFF PHYSICIAN] - 11/23/21 1:15 pm Kathi Gar MD [REFERRING] - 1-2 days Patient Instructions/Handouts: Amiodarone (By mouth), Apixaban (By mouth), A- fib (Atrial Fibrillation) (ED), Chest Pain (ED) Activity/Diet/Wound Care/Special Instructions: Cardiology Instructions: Amiodarone is a new medication Instructions: Please take Amiodarone 400mg Twice a day for 1 week (10/28-11/03) Then take Amiodarone 200mg Twice a day for 1 week starting 11/04 Starting 11/11- start taking amiodarone 200mg Daily Further changes by Dr. Hartman in the office. Follow up with Dr. Hartman on 11/23. Please call the office if any questions Diet: Cardiac FU PCP within 1-2 days of discharge. Come back to the ED for worsening chest pain, shortness of breath, palpitations or lightheadedness. Discharge Disposition: HOME SELF-CARE
[2021-11-01] MEDS ORDERED: PATIENT'S OWN (Alendronate Sodium [Fosamax] 70 MG Tablet) PO SCH (07:00)
== END 2021-10-28 15:01 | disposition home or self-care (01) | DRG 309 ==
LOC: EC 14:39 → 6NMEDSUR 15:49 → 3SCARD 10-27 15:12 → OBSVTOIN 10-27 15:40
PROVIDERS: ADMIT Internal Medicine; ATTEND Internal Medicine
DX: I48.0 Paroxysmal atrial fibrillation (principal); E87.1 Hypo-osmolality and hyponatremia; J98.11 Atelectasis; I49.3 Ventricular premature depolarization; I08.1 Rheumatic disorders of both mitral and tricuspid valves; I73.9 Peripheral vascular disease, unspecified; M81.0 Age-related osteoporosis without current pathological fracture; R07.89 Other chest pain; R73.9 Hyperglycemia, unspecified; Z20.822 Contact with and (suspected) exposure to COVID-19; D72.829 Elevated white blood cell count, unspecified; I10 Essential (primary) hypertension; E78.5 Hyperlipidemia, unspecified; F41.9 Anxiety disorder, unspecified; Z88.2 Allergy status to sulfonamides; Z79.899 Other long term (current) drug therapy; Z79.83 Long term (current) use of bisphosphonates; Z79.01 Long term (current) use of anticoagulants; Z87.440 Personal history of urinary (tract) infections; Z87.891 Personal history of nicotine dependence; Z82.49 Family history of ischemic heart disease and other diseases of the circulatory system; I25.2 Old myocardial infarction; Z79.02 Long term (current) use of antithrombotics/antiplatelets; Z79.82 Long term (current) use of aspirin; Z90.710 Acquired absence of both cervix and uterus
CPT/HCPCS: 36415; 71046; 78452; 80048; 80053; 80061; 83036; 83690; 83735; 83880; 84443; 84484; 85025; 85379; 85610; 85730; 87635; 93005; 93017; 93306; 94760; 99285

== ENCOUNTER 2022-02-23 07:23 | Day surgery (SDC) | payer MEDICARE ==
[~2022-02-23 07:23] MED LIST: LACTATED RINGERS 1,000 ML IV SCH; LIDOCAINE 1% (10MG/ML) FOR IV START INTRADERMA PRN
[2022-02-23 08:08] VITALS: RESP 16; TEMP 97.6
[2022-02-23] MEDS ORDERED: PROPOFOL 10 MG/ML 20 ML VIAL IV ONE (08:29)
--- NOTE | 2022-02-23 08:49 | P.PCN ---
Date of Procedure: 02/23/22 Procedure(s) Performed: BRIEF HISTORY: Patient is a 86-year-old pleasant white female scheduled for an elective colonoscopy as a part of evaluation of Hemoccult-positive stool. PROCEDURE PERFORMED: Colonoscopy with snare polypectomy. PREOPERATIVE DIAGNOSIS: Hemoccult-positive stool]. IV sedation per Anesthesia. PROCEDURE: After informed consent was obtained, the patient, was brought into the endoscopy unit. IV sedation was administered by Anesthesia under continuous monitoring. Digital rectal examination was normal. Initially the Olympus CF-160 flexible video colonoscope was then inserted in the rectum, gradually advanced into the cecum without any difficulty. Careful examination was performed as the scope was gradually being withdrawn. Ileocecal valve and the appendiceal orifice were visualized and appeared normal. Prep was excellent. Mucosa of the cecum, ascending colon, transverse colon appeared normal. The descending colon there was a 5 limited polyp removed by snare polypectomy. Moderate left-sided diverticulosis seen. Rest of the descending colon, sigmoid colon, and rectum appeared normal. Retroflexion was performed in the rectum and no lesions were seen. The patient tolerated the procedure well. IMPRESSION: 5 mm ascending colon polyp status post polypectomy Scattered sigmoidal diverticulosis. RECOMMENDATIONS: Findings of this examination were discussed with the patient lesser family. She was advised to follow with the biopsy results. Continue to be a high-fiber diet and take Supplements as needed..
[2022-02-23 09:13] VITALS: BP 127/68; PULSE 53
== END 2022-02-23 09:37 | disposition home or self-care (01) ==
LOC: ORWHC2ENDO 07:23
PROVIDERS: ATTEND Internal Medicine Gastroenterology
DX: D12.4 Benign neoplasm of descending colon (principal); K57.30 Diverticulosis of large intestine without perforation or abscess without bleeding; I48.91 Unspecified atrial fibrillation; I10 Essential (primary) hypertension; E78.5 Hyperlipidemia, unspecified; Z88.2 Allergy status to sulfonamides; Z79.02 Long term (current) use of antithrombotics/antiplatelets; Z79.82 Long term (current) use of aspirin; Z79.899 Other long term (current) drug therapy; Z79.891 Long term (current) use of opiate analgesic; Z79.2 Long term (current) use of antibiotics; Z98.890 Other specified postprocedural states
CPT/HCPCS: 88305; 45385; J2704

== ENCOUNTER → 2023-10-05 | Outpatient (CLI) | payer MEDICARE ==
[~2023-10-05] MED LIST changes: +DENOSUMAB 60 MG/ML 1 ML SYRINGE SQ ONE; -LACTATED RINGERS 1,000 ML IV SCH; -LIDOCAINE 1% (10MG/ML) FOR IV START INTRADERMA PRN
== END ==
LOC: PROCWHC3 12:24
PROVIDERS: ATTEND Physician Assistant
DX: M81.0 Age-related osteoporosis without current pathological fracture (principal)
CPT/HCPCS: 96372